=== PATIENT | male | born 1955 | race Hispanic/Latino ===

== ENCOUNTER → 2020-12-21 | Outpatient (CLI) | payer MEDICARE, OTHER | LOC: RAD 10:29 | PROVIDERS: ATTEND Family Medicine | DX: R63.4 Abnormal weight loss (principal) | CPT/HCPCS: 71046 ==

== ENCOUNTER → 2021-01-04 | Outpatient (CLI) | payer MEDICARE, OTHER ==
[~2021-01-04] MED LIST: IOPAMIDOL 300MG/ML 100 ML INFUS..BTL IV ONE; IOPAMIDOL 370 MG/ML 200 ML INFUS..BTL INJ ONE; SODIUM CHLORIDE 0.9% 50ML 50 ML ONE
== END ==
LOC: CT 15:05
PROVIDERS: ATTEND Family Medicine
DX: R91.8 Other nonspecific abnormal finding of lung field (principal)
CPT/HCPCS: 71260; Q9967

== ENCOUNTER → 2021-03-07 | Outpatient (CLI) | payer MEDICARE, OTHER | LOC: CT 07:43 | PROVIDERS: ATTEND Internal Medicine Critical Care Medicine | DX: J18.9 Pneumonia, unspecified organism (principal) | CPT/HCPCS: 71250 ==